=== PATIENT | female | born 1980 | race Caucasian/White ===

== ENCOUNTER 2019-06-15 14:50 | Day surgery (SDC) | payer OTHER ==
[2019-06-15 15:25] LABS: BASOPHILS # (AUTO) 0.1 10^3/uL (0.0-0.1); BASOPHILS % (AUTO) 0.4 %; EOSINOPHILS # (AUTO) 0.2 10^3/uL (0.0-0.7); EOSINOPHILS % (AUTO) 0.8 %; HGB - HEMOGLOBIN 12.2 g/dL (12.0-16.0); MEAN CORPUSCULAR HEMOGLOBIN 29.4 pg (27.0-31.0); MEAN CORPUSCULAR HGB CONC 33.3 g/dL (32.0-36.0); MEAN CORPUSCULAR VOLUME 88.2 fL (81.0-99.0); MEAN PLATELET VOLUME 10.2 fL (7.9-10.8); MONOCYTES # (AUTO) 1.1 10^3/uL (0.0-1.0); MONOCYTES % (AUTO) 5.6 %; NEUTROPHILS # (AUTO) 16.5 10^3/uL (1.5-6.6); NEUTROPHILS % (AUTO) 82.8 %; PLT - PLATELET COUNT 321 10^3/uL (130-450); RED BLOOD COUNT 4.15 10^6/uL (4.20-5.40); RED CELL DISTRIBUTION WIDTH 13.3 % (12.0-15.0); WHITE BLOOD COUNT 19.9 x10^3/uL (4.8-10.8)
[2019-06-15 15:40] LABS: ALBUMIN 4.4 g/dL (3.2-5.5); ALBUMIN/GLOBULIN RATIO 1.3 (1.0-2.2); BILIRUBIN,TOTAL 0.7 mg/dL (0.2-1.0); CALCIUM 9.4 mg/dL (8.5-10.3); TOTAL PROTEIN 7.7 g/dL (6.7-8.2)
[2019-06-15] MEDS ORDERED: SODIUM CHLORIDE 0.9% 1,000 ML IV ONE (15:55)
[2019-06-15] MEDS ORDERED: MORPHINE 2 MG/ML CARPUJECT IVP STA (15:55)
--- NOTE | 2019-06-15 15:58 | ED Physician Documentation ---
History of Present Illness - Stated complaint Stated Complaint: BACK PX/N - Chief complaint Chief Complaint: Abd Pain - Additonal information Additional information: This is a 38-year-old female with a history of cholecystectomy and anxiety, who presents with abdominal pain. Her pain began gradually around 9 AM and has been worsening since then, is now severe, and feels like a gripping/stabbing pain. It is in her periumbilical region and also in her right lower quadrant, radiating somewhat to her back. She has had nausea but no vomiting. She still does have her appendix. She states that she has been somewhat constipated recently, but denies any blood in her stool, no fever. No abnormal vaginal discharge or itching, last menstrual period was 1 month ago. No concern for . Review of Systems Constitutional: denies: Fever Nose: denies: Rhinorrhea / runny nose Cardiac: denies: Chest pain / pressure Respiratory: denies: Dyspnea GI: reports: Abdominal Pain, Nausea : denies: Dysuria Skin: denies: Rash Neurologic: denies: Generalized weakness Psychiatric: reports: Anxiety Endocrine: denies: Easy bruising / bleeding Immunocompromised: denies: Immunocompromised PD PAST MEDICAL HISTORY - Past Medical History Psych: Anxiety - Past Surgical History General: Cholecystectomy - Present Medications Home Medications: Ambulatory Orders Medication Instructions Recorded Confirmed Atorvastatin [Lipitor] 10 mg PO DAILY 06/15/19 06/15/19 Buspirone HCl 10 mg PO DAILY 06/15/19 06/15/19 Methylphenidate HCl 20 mg PO DAILY 06/15/19 06/15/19 [Methylphenidate ER] Methylphenidate HCl [Ritalin] 10 mg PO DAILY PM 06/15/19 06/15/19 lamoTRIgine [LaMICtal] 250 mg PO DAILY 06/15/19 06/15/19 oxyCODONE [Roxicodone] 5 mg PO Q6H PRN #15 tablet 06/15/19 traZODone [Desyrel] 50 mg PO DAILY PM 06/15/19 06/15/19 - Allergies Allergies/Adverse Reactions: Allergies Allergy/AdvReac Type Severity Reaction Status Date / Time No Known Drug Allergies Allergy Verified 06/15/19 15:01 - Social History Does the pt have substance abuse?: No - Family History Family history: reports: Non contributory PD ED PE NORMAL - Vitals Vital signs reviewed: Yes - General General: Alert and oriented X 3, Other (uncomfortable appearing) - HEENT HEENT: PERRL - Neck Neck: Supple, no meningeal sign - Cardiac Cardiac: RRR - Respiratory Respiratory: No respiratory distress, Clear bilaterally - Abdomen Abdomen: Other (Soft, nondistended, there is tenderness the periumbilical region, and especially in the right lower quadrant. There is mild guarding in the right lower quadrant. There is no right upper quadrant tenderness. No abdominal lesions.) - Derm Derm: Warm and dry - Extremities Extremities: No deformity - Neuro Neuro: Alert and oriented X 3 - Psych Psych: Normal mood, Normal affect Results - Vitals Vitals: Vital Signs - 24 hr 06/15/19 06/15/19 06/15/19 14:58 16:54 18:00 Temperature 36.2 C L Heart Rate 86 95 102 H Respiratory 16 18 20 Rate Blood Pressure 131/73 H 125/76 129/76 O2 Saturation 100 98 99 06/15/19 06/15/19 06/15/19 19:00 20:40 20:45 Temperature 37.6 C H Heart Rate 101 H 122 H 110 H Respiratory 17 18 19 Rate Blood Pressure 108/60 141/75 H 142/77 H O2 Saturation 99 98 95 06/15/19 06/15/19 06/15/19 20:50 20:55 21:00 Temperature Heart Rate 93 85 Respiratory 18 19 Rate Blood Pressure 127/74 117/72 126/77 O2 Saturation 99 99 06/15/19 06/15/19 06/15/19 21:05 21:10 21:15 Temperature 37.5 C 37.1 C Heart Rate 98 87 88 Respiratory 15 22 14 Rate Blood Pressure 115/88 H 130/82 H 126/75 O2 Saturation 100 96 98 06/15/19 06/15/19 06/15/19 21:34 21:47 22:03 Temperature 37.6 C H 36.7 C 36.9 C Heart Rate 91 87 87 Respiratory 16 17 20 Rate Blood Pressure 125/73 109/79 125/76 O2 Saturation 96 98 94 06/15/19 06/15/19 06/15/19 22:16 22:48 23:18 Temperature 36.9 C 36.9 C Heart Rate 85 95 107 H Respiratory 18 20 20 Rate Blood Pressure 120/71 128/72 117/72 O2 Saturation 99 98 97 06/16/19 06/16/19 06/16/19 00:00 01:14 02:00 Temperature 36.9 C Heart Rate 97 101 H 95 Respiratory 18 16 16 Rate Blood Pressure 129/71 134/82 H 122/65 O2 Saturation 99 98 97 06/16/19 06/16/19 03:02 07:18 Temperature 36.9 C Heart Rate 99 96 Respiratory 16 14 Rate Blood Pressure 110/55 L 122/66 O2 Saturation 96 93 Oxygen O2 Source Room air - Labs Labs: Laboratory Tests 06/15/19 06/15/19 06/15/19 15:12 15:12 15:12 WBC 19.9 H RBC 4.15 L Hgb 12.2 Hct 36.6 L MCV 88.2 MCH 29.4 MCHC 33.3 RDW 13.3 Plt Count 321 MPV 10.2 Neut # (Auto) 16.5 H Lymph # (Auto) 2.0 Cata[place]oula # (Auto) 1.1 H Eos # (Auto) 0.2 Baso # (Auto) 0.1 Absolute Nucleated RBC 0.00 Nucleated RBC % 0.0 Sodium 138 Potassium 3.6 Chloride 102 Carbon Dioxide 25 Anion Gap 11.0 BUN 18 Creatinine 1.0 Estimated GFR (MDRD) 61 L Glucose 117 H POC Whole Bld Glucose Calcium 9.4 Total Bilirubin 0.7 AST 19 ALT 16 Alkaline Phosphatase 78 Total Protein 7.7 Albumin 4.4 Globulin 3.3 Albumin/Globulin Ratio 1.3 Lipase 24 Serum HCG, Qual NEGATIVE Urine Color Urine Clarity Urine pH Ur Specific [place] Urine Protein Urine Glucose (UA) Urine Ketones Urine Occult Blood Urine Nitrite Urine Bilirubin Urine Urobilinogen Ur Leukocyte Esterase Ur Microscopic Review Urine Culture Comments Urine HCG, Qual 06/15/19 06/15/19 06/16/19 17:26 17:26 07:35 WBC RBC Hgb Hct MCV MCH MCHC RDW Plt Count MPV Neut # (Auto) Lymph # (Auto) [place]oula # (Auto) Eos # (Auto) Baso # (Auto) Absolute Nucleated RBC Nucleated RBC % Sodium Potassium Chloride Carbon Dioxide Anion Gap BUN Creatinine Estimated GFR (MDRD) Glucose POC Whole Bld Glucose 129 H Calcium Total Bilirubin AST ALT Alkaline Phosphatase Total Protein Albumin Globulin Albumin/Globulin Ratio Lipase Serum HCG, Qual Urine Color YELLOW Urine Clarity CLEAR Urine pH 7.5 Ur Specific [place] 1.010 1.010 Urine Protein NEGATIVE Urine Glucose (UA) NEGATIVE Urine Ketones 15 H Urine Occult Blood NEGATIVE Urine Nitrite NEGATIVE Urine Bilirubin NEGATIVE Urine Urobilinogen 0.2 (NORMAL) Ur Leukocyte Esterase NEGATIVE Ur Microscopic Review NOT INDICATED Urine Culture Comments NOT INDICATED Urine HCG, Qual NEGATIVE - Rads (name of study) CT abd/pelvis with contrast Radiology: Other (Acute appendicitis) PD MEDICAL DECISION MAKING - ED course Complexity details: considered differential (Appendicitis, gastroenteritis, ovarian torsion, retained bile duct stone, pancreatitis, pyelonephritis.) ED course: On examination patient is uncomfortable but nontoxic-appearing she has focal tenderness in the right lower quadrant. She was given normal saline, Zofran and morphine for pain, she had continued pain so she is given a dose of hyd romorphone. Labs are notable for a leukocytosis of 19.9, her CMP is unremarkable. Her hCG is negative. Her urine shows no signs of infection. Her CT scan does show an acute appendicitis. I contacted Dr. Miramontes of surgery, patient was placed on antibiotics with plans for appendectomy. Patient remained hemodynamically stable while in the emergency department prior to transfer to the OR. Departure - Departure Disposition: ED Transfer to [facility] Clinical Impression: Acute appendicitis Qualifiers: Acute appendicitis type: with localized peritonitis Appendicitis gangrene presence: unspecified whether gangrene present Appendicitis perforation presence: without perforation Appendicitis abscess presence: without abscess Qualified Code(s): K35.30 - Acute appendicitis with localized peritonitis, without perforation or gangrene Condition: Fair Discharge Date/Time: 06/15/19 19:38
[2019-06-15] MEDS ORDERED: IOVERSOL 320 100 ML VIAL IVP ONE ×2 (16:08→17:51)
[2019-06-15] MEDS ORDERED: HYDROmorphone 1 MG/ML CARPUJECT IVP STA (16:52)
[2019-06-15 17:29] LABS: HCG,QUALITATIVE BLOOD NEGATIVE
[2019-06-15 17:37] LABS: BILIRUBIN,URINE NEGATIVE (NEGATIVE); GLUCOSE, URINE (UA) NEGATIVE (NEGATIVE); KETONES,URINE (UA) 15 mg/dL (NEGATIVE); LEUKOCYTE ESTERASE, URINE NEGATIVE (NEGATIVE); NITRITE,URINE NEGATIVE (NEGATIVE); OCCULT BLOOD,URINE NEGATIVE (NEGATIVE); PH,URINE 7.5 PH (5.0-7.5); PROTEIN,URINE NEGATIVE (NEGATIVE); UROBILINOGEN,URINE 0.2 (NORMAL) E.U./dL (NORMAL)
[2019-06-15 17:38] LABS: CLARITY,URINE CLEAR (CLEAR)
[2019-06-15 17:41] LABS: HCG UR QUAL NEGATIVE
[2019-06-15] MEDS ORDERED: PIPERACILLIN/TAZOBACTAM 3.375 GM in SODIUM CHLORIDE 0.9% MINIBAG 100 ML IV STA (18:06)
--- NOTE | 2019-06-15 18:23 | CT Report ---
Reason: Periumbilical and RLQ pain, WBC 19.9 Procedure Date: 06/15/2019 Accession Number: [id number] / [id number] Procedure: CT - Abdomen/Pelvis W CPT Code: FULL RESULT: EXAM: CT ABDOMEN AND PELVIS EXAM DATE: 06/15/2019 05:49 PM. CLINICAL HISTORY: Periumbilical and RLQ pain. WBC 19.9. COMPARISONS: None. TECHNIQUE: Routine helical CT imaging was performed through the abdomen and pelvis. IV contrast: 100 cc of Optiray 320. Enteric contrast: No. Reconstructions: Coronal and sagittal. In accordance with CT protocol optimization, one or more of the following dose reduction techniques were utilized for this exam: automated exposure control, adjustment of mA and/or KV based on patient size, or use of iterative reconstructive technique. FINDINGS: Lung Bases: Unremarkable. Liver: Normal. No masses. Gallbladder/Bile Ducts: Nonvisualized gallbladder. No dilated ducts.. Spleen: Normal. Pancreas: Normal. Adrenal Glands: Normal. Kidneys: Normal. No masses or hydronephrosis. Peritoneal Cavity/Bowel: Normal. No free fluid, free air or adenopathy. No masses or acute inflammatory process. Abnormal appendix dilated up to 12 mm in diameter with wall enhancement, and appendicoliths, and adjacent fat stranding. Pelvic Organs: Normal. The bladder and visualized pelvic organs are within normal limits. Vasculature: No aneurysms or other significant abnormality. Bones: No significant abnormality. Other: None. IMPRESSION: Acute appendicitis. RADIA
[2019-06-15] MEDS ORDERED: ACETAMINOPHEN 1,000 MG/100 ML 100 ML IV ONE (18:46)
[2019-06-15] MEDS ORDERED: fentaNYL 250 MCG/5 ML VIAL IVP ONE (18:46)
[2019-06-15] MEDS ORDERED: DEXAMETHASONE 4 MG/ML VIAL IVP ONE (18:46)
[2019-06-15] MEDS ORDERED: ONDANSETRON 4 MG/2 ML VIAL IVP ONE (18:46)
[2019-06-15] MEDS ORDERED: MIDAZOLAM 2 MG/2 ML VIAL IVP ONE (18:46)
[2019-06-15] MEDS ORDERED: PROPOFOL 200 MG/20 ML VIAL IVP ONE (18:46)
[2019-06-15] MEDS ORDERED: GLYCOPYRROLATE 1 MG/5 ML VIAL IVP ONE (18:46)
[2019-06-15] MEDS ORDERED: NEOSTIGMINE 1 MG/1 ML 10 ML MDV IVP ONE (18:46)
[2019-06-15] MEDS ORDERED: ROCURONIUM 50 MG/5 ML VIAL IVP ONE (18:46)
--- NOTE | 2019-06-15 19:05 | CONSULTATION NOTE ---
Referring Provider Name of Referring Provider:: Dr. Castaneda Consult Date: 06/15/19 Chief Complaint - Chief Complaint Chief Complaint: abd pain History of Present Illness - Admitted From Admitted From:: ER - History Obtained From Records Reviewed: yes History obtained from: pt Exam Limitations: none - History of Present Illness HPI Comment/Other: 38 yo G0 female with sudden onset of generalized gas pains at approximately 0900 today followed by epigastric pain radiating into her back, associated with anorexia and nausea but no vomiting, fever or chills, change in bowel habits, dysuria or respiratory sx. No previous similar sx. Activity exacerbates the d iscomfort. Hx GERD well controlled with PPI therapy. S/p cholecystectomy. Evaluation in the ER included lab showing WBC 19K, and abd/pelvic CT showing an abnormally thickened appendix with appendicoliths and sharron appendiceal fat stranding but no signs of perforation or other pathology. She reports regular periods, no abnormal vaginal d/c and LMP approx 2 weeks ago. 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 Mother lives in [facility] - Substance History Use: Uses substance without health or social issues: NONE Meds/Allgy - Home Medications Home Medications: Ambulatory Orders Medication Instructions Recorded Confirmed Atorvastatin [Lipitor] 10 mg PO DAILY 06/15/19 06/15/19 Buspirone HCl 10 mg PO DAILY 06/15/19 06/15/19 Methylphenidate HCl 20 mg PO DAILY 06/15/19 06/15/19 [Methylphenidate ER] Methylphenidate HCl [Ritalin] 10 mg PO DAILY PM 06/15/19 06/15/19 lamoTRIgine [LaMICtal] 250 mg PO DAILY 06/15/19 06/15/19 traZODone [Desyrel] 50 mg PO DAILY PM 06/15/19 06/15/19 - Allergies Allergies/Adverse Reactions: Allergies Allergy/AdvReac Type Severity Reaction Status Date / Time No Known Drug Allergies Allergy Verified 06/15/19 15:01 Review of Systems - Constitutional Constitutional: reports: Poor appetite. denies: Fever, Chills, Weight gain, Weight loss - Gastrointestinal Gastrointestinal: reports: Abdominal pain, Nausea, Reflux/heartburn, Poor appet ite. denies: Constipation, Diarrhea, Change in bowel habits, Rectal bleeding, Black stools, Bloody stools, Vomiting, Bile emesis, Kenny blood emesis, Coffee grounds emesis, Bloating - Genitourinary Genitourinary: denies: Dysuria - Musculoskeletal Musculoskeletal: reports: Back pain - Psychiatric Psychiatric: reports: Depression, Anxiety - Hematologic/Lymphatic Hematologic/Lymphatic: denies: Anemia, Bruising, Petechiae, Blood clots, Lymphad enopathy, Bleeding tendencies - All Other Systems All Other Systems: reports: Reviewed and negative (or covered in HPI/PMH) Exam - Vital Signs Reviewed Vital Signs: Yes Vital Signs: Vital Signs x48h Temp Pulse Resp BP Pulse Ox 06/15/19 18:00 102 H 20 129/76 99 06/15/19 16:54 95 18 125/76 98 06/15/19 14:58 36.2 C L 86 16 131/73 H 100 - Physical Exam General Appearance: positive: Alert, Severe distress Eyes Bilateral: positive: Normal inspection, Conjunctivae nml, No scleral icterus ENT: positive: ENT inspection nml, Pharynx nml, No signs of dehydration Neck: positive: Nml inspection, Thyroid nml, No JVD, Trachea midline. negative: Thyromegaly, Lymphadenopathy (R), Lymphadenopathy (L) Respiratory: positive: Chest non-tender, No respiratory distress, Breath sounds nml. negative: Wheezes, Rales, Rhonchi Cardiovascular: positive: Regular rate & rhythm, No murmur, No gallop Abdomen: positive: Nml bowel sounds, No distention, Tenderness (diffuse lower abd tenderness maximal in RLQ; + Rovsing's sign; + guarding and rebound both lower quadrants maximal in RLQ), Guarding, Rebound. negative: Hepatomegaly, Splenomegaly, Mass Back: positive: Nml inspection. negative: CVA tenderness (R), CVA tenderness (L) Skin: positive: Color nml, No rash, Warm, Dry Extremities: positive: Non-tender, Nml appearance, No pedal edema. negative: Calf tenderness Neurologic/Psychiatric: positive: Oriented x3, Other (anxious) Conclusion/Plan - Diagnosis Diagnosis: acute abdomen secondary to acute appendicitis without evidence of perforation at this time. - Plan Plan: to OR for laparoscopic appendectomy. detailed PAR conference held with pt and consent obtained. Procedure will be performed this evening. Thanks, - Lab Results Fish Bones: 06/15/19 15:12 06/15/19 15:12 - Diagnostic Imaging Results Diagnostic Imaging Results: positive: Final report reviewed, Read independently Diagnostic Imaging Results Comments: See HPI
--- NOTE | 2019-06-15 19:06 | ANESTHESIA ---
Pre-Anesthesia VS, & Labs - Diagnosis appendicitis - Procedure laparoscopic appendectomy Vital Signs: Temp Pulse Resp BP Pulse Ox 36.2 C L 102 H 20 129/76 99 06/15/19 14:58 06/15/19 18:00 06/15/19 18:00 06/15/19 18:00 06/15/19 18:00 Height 5 ft 7 in Weight (kg) 99.79 kg Body Mass Index 34.4 - NPO >8 hours - Is Patient ?: No - Lab Results Current Lab Results: Laboratory Tests 06/15/19 15:12: Serum HCG, Qual NEGATIVE 06/15/19 15:12: Sodium 138, Potassium 3.6, Chloride 102, Carbon Dioxide 25, Anion Gap 11.0, BUN 18, Creatinine 1.0, Estimated GFR (MDRD) 61 L, Glucose 117 H , Calcium 9.4, Total Bilirubin 0.7, AST 19, ALT 16, Alkaline Phosphatase 78, Total Protein 7.7, Albumin 4.4, Globulin 3.3, Albumin/Globulin Ratio 1.3, Lipase 24 06/15/19 15:12: WBC 19.9 H, RBC 4.15 L, Hgb 12.2, Hct 36.6 L, MCV 88.2, MCH 29.4, MCHC 33.3, RDW 13.3, Plt Count 321, MPV 10.2, Neut # (Auto) 16.5 H, Lymph # (Auto) 2.0, Heard # (Auto) 1.1 H, Eos # (Auto) 0.2, Baso # (Auto) 0.1, Absolute Nucleated RBC 0.00, Nucleated RBC % 0.0 Fish Bones: 06/15/19 15:12 06/15/19 15:12 Home Medications and Allergies Home Medications: Ambulatory Orders Atorvastatin [Lipitor] 10 mg PO DAILY 06/15/19 Buspirone HCl 10 mg PO DAILY 06/15/19 Methylphenidate HCl [Methylphenidate ER] 20 mg PO DAILY 06/15/19 Methylphenidate HCl [Ritalin] 10 mg PO DAILY PM 06/15/19 lamoTRIgine [LaMICtal] 250 mg PO DAILY 06/15/19 traZODone [Desyrel] 50 mg PO DAILY PM 06/15/19 Atorvastatin [Lipitor] 10 mg PO DAILY 06/15/19 Buspirone HCl 10 mg PO DAILY 06/15/19 Methylphenidate HCl [Methylphenidate ER] 20 mg PO DAILY 06/15/19 Methylphenidate HCl [Ritalin] 10 mg PO DAILY PM 06/15/19 lamoTRIgine [LaMICtal] 250 mg PO DAILY 06/15/19 traZODone [Desyrel] 50 mg PO DAILY PM 06/15/19 Allergies/Adverse Reactions: Allergies Allergy/AdvReac Type Severity Reaction Status Date / Time No Known Drug Allergies Allergy Verified 06/15/19 15:01 Anes History & Medical History - Anesthetic History Anesthesia Complications: reports: No previous complications - Medical History Cardiovascular: reports: None Pulmonary: reports: Asthma, Pneumonia (3 yrs ago) Smoking Status: Never smoker - Surgical History General: Cholecystectomy Exam General: Alert Dental: WNL Mouth Opening: Greater than 4 Fingerbreadths Mallampati classification: II Thyromental Distance: greater than 6 cm Respiratory: Lungs clear Cardiovascular: Regular rate, Normal S1, Normal S2 Plan Anesthesia Type: General Consent for Procedure(s) Verified and Reviewed: Yes Code Status: Attempt Resuscitation ASA classification: 2-Mild systemic disease Is this case an emergency?: Yes
[2019-06-15] MEDS ORDERED: KETOROLAC 30 MG/ML VIAL IVP STA (19:12)
[2019-06-15] MEDS ORDERED: BUPIVACAINE 0.25% PF 30 ML VIAL ONE (19:30)
[2019-06-15] MEDS ORDERED: BUPIVACAINE 0.5%-EPI 1:200000 PF 30 ML VIAL ONE (19:33)
[2019-06-15] MEDS ORDERED: BUPIVACAINE 0.5%-EPI 1:200000 PF 30 ML VIAL SUBQ ONE ×2 (20:07→20:28)
[2019-06-15] MEDS ORDERED: LACTATED RINGERS 1,000 ML IV ONE ×3 (20:08→20:43)
[2019-06-15] MEDS ORDERED: LORazepam 2 MG/ML VIAL ONE (21:09)
[2019-06-15] MEDS: oxyCODONE 5 MG TABLET PO PRN (22:57)
[2019-06-16] MEDS: IBUPROFEN 600 MG TABLET PO PRN ×2 (01:24→10:22)
[2019-06-16] MEDS: ACETAMINOPHEN 325 MG TABLET PO PRN ×2 (01:24→10:22)
[2019-06-16] MEDS: oxyCODONE 5 MG TABLET PO PRN (03:11)
--- NOTE | 2019-06-16 07:22 | OPERATIVE REPORT ---
DATE OF SERVICE: 06/15/2019 Physician: Kwasi Miramontes MD PREOPERATIVE DIAGNOSIS: Acute appendicitis. POSTOPERATIVE DIAGNOSIS: Acute appendicitis. PROCEDURE PERFORMED: Laparoscopic appendectomy. ANESTHESIA: General endotracheal by Ute Mckeon CRNA. SURGEON: Kwasi Miramontes MD ESTIMATED BLOOD LOSS: 5 mL COMPLICATIONS: None. FINDINGS: Laparoscopy revealed an acutely inflamed intraperitoneal appendix with extensive periappen diceal exudate, but no evidence of gangrene or gross perforation. The cecal base, the remainder of t he right colon, visualized portions of the liver and terminal ileum were normal. INDICATIONS: Patient is a 38-year-old woman with a 12-hour history of periumbilical pain associated with right lower quadrant peritoneal signs and elevated white count, and a CT scan showing an abnorma lly thickened appendix, consistent with acute appendicitis. She is felt to be suffering from the kellie e and advised to undergo laparoscopic appendectomy for definitive surgical treatment. TECHNIQUE: After informed consent, patient was taken to the operating room where she was placed unde r general endotracheal anesthesia. Preoperative preparation included preoperative administration of a therapeutic dose of Zosyn 3.375 grams intravenously in the emergency room. Sequential calf supa apolinar boots were applied. Her abdomen was prepared with ChloraPrep solution and draped in the usual s terile fashion. Transverse incision was made along the inferior edge of the umbilicus and carried do wn through the layers of abdominal wall until the peritoneum was identified and entered sharply. A 1 0 mm Melly cannula was inserted. Pneumoperitoneum was achieved with carbon dioxide. A 10 mm, 30-de gree LemonStand. telescope was inserted. Laparoscopy was carried out with findings noted above. Two 5 m m ports were placed in the lower midline and left lower quadrant. Instruments were passed. The appe ndix was grasped and mobilized. The mesoappendix was ligated and divided with the LigaSure. Once th e appendiceal base at its junction with the cecal base was fully exposed, the Ethicon PROXIMATE 45 mm linear cutting and stapling device with the vascular load was used to ligate and divide the appendix at its junction with the cecal base. This also provided hemostasis. The appendix was placed in an organ retrieval bag, extracted and sent for pathologic evaluation. After hemostasis had been ensured, the right lower quadrant was irrigated with saline solution, follo wing which instruments and cannulas were removed under direct vision. Pneumoperitoneum was allowed t o escape and the incisions were closed in layers using continuous 0 Vicryl, reapproximating the midli ne fascia at the umbilicus, followed by 4-0 Monocryl subcuticular skin closure at all the port sites; 30 mL of 0.5% Marcaine with epinephrine was infiltrated into the incisions to assist in postoperativ e analgesia. Dermabond was applied. Anesthesia was terminated and patient was transferred to the re covery room in satisfactory condition. Sponge and needle counts were correct x2. No drains were use dMaribeth TD: 06/15/2019 20:43
[2019-06-16 09:23] VITALS: BP 122/66
== END 2019-06-16 10:47 | disposition home or self-care (01) ==
LOC: ED 14:50 → SDS 18:45 → MS2 21:33 → SDS 06-16 10:47
PROVIDERS: ATTEND Internal Medicine Gastroenterology
PROC: 0DTJ4ZZ Resection of Appendix, Percutaneous Endoscopic Approach (ICD-10-PCS; principal; 2019-06-15 19:00)
DX: K35.80 Unspecified acute appendicitis (principal); J45.909 Unspecified asthma, uncomplicated
CPT/HCPCS: 36415; 44970; 74177; 80053; 81003; 81025; 83690; 84703; 85025; 96361; 96365; 96375; 99284; 99285; A9270; J0131; J1170; J2060; J3010; J7120; Q9967; 81001; 87086